=== PATIENT | male | born 1940 | race Caucasian/White ===

== ENCOUNTER 2020-01-21 08:08 | Emergency (ER) | payer MEDICARE, SELFPAY ==
[2020-01-21 08:28] VITALS: BP 149/79; PULSE 85; RESP 16; TEMP 36.5; O2SAT 99
--- NOTE | 2020-01-21 08:48 | ED.SKABFB ---
HPI - Skin/Abscess/Foreign Bdy General Chief complaint: Skin/Abscess/Foreign Body Stated complaint: Rash stomach down Time Seen by Provider: 01/21/20 08:47 Source: patient and RN notes reviewed Mode of arrival: ambulatory Limitations: no limitations History of Present Illness HPI narrative: 79-year-old male presents with concern for rash to his bilateral legs, lower abdomen. Reports approximately 5-day history of the rash. Reports it is itchy, not painful. Denies any new soaps, lotions, household products. Denies anyone else in the home has a similar rash. Reports the rash started on his legs and has spread. Reports areas of crust on his legs near the rash. Denies fever, malaise. Denies difficulty swallowing, breathing, swollen lips, swollen tongue, nausea, vomiting, diarrhea. Reports he was outdoors helping his son cut down trees, however he reports he has never reacted to any poison oak, reggie, sumac etc. in his lifetime. MD complaint: rash Related Data Home Medications Medication Instructions Recorded Confirmed amlodipine 5 mg PO DAILY 01/21/20 01/21/20 aspirin 81 mg PO DAILY 01/21/20 01/21/20 furosemide 40 mg PO DAILY 01/21/20 01/21/20 losartan 100 mg PO DAILY 01/21/20 01/21/20 simvastatin 40 mg PO DAILY 01/21/20 01/21/20 Allergies Allergy/AdvReac Type Severity Reaction Status Date / Time No Known Allergies Allergy Verified 01/21/20 08:42 Review of Systems Review of Systems: Narrative: CONSTITUTIONAL: Denies malaise, chills, sweats, or fever. ENT: Denies rhinorrhea, congestion, sinus pain, otalgia or sore throat. CARDIOVASCULAR: Denies chest pain, palpitations, or edema. RESPIRATORY: Denies cough or dyspnea. GASTROINTESTINAL: Denies nausea, vomiting, diarrhea SKIN: Reports itchy rash on legs, lower abdomen MUSCULOSKELETAL: Denies myalgia. All systems reviewed & are unremarkable except as noted in HPI and below PMFSH Comments At time of signature, agree with nursing past medical, surgical, social and family history. There is no relevant family history pertinent to the presenting complaint Exam Narrative: Exam Narrative: GENERAL: Well-appearing, well-nourished, and in no acute distress. HEAD: Normocephalic EYES: PERRLA, conjunctivae clear ENT: Nares clear. Mucous membranes moist. NECK: Supple. CHEST: No respiratory distress. Clear to auscultation. No bony deformities, no asymmetry. Speaks in full sentences. HEART: Regular rate and rhythm. No murmur heard. EXTREMITIES: Grossly normal range of motion. No edema SKIN: Warm, dry. Papular, vesicular erythematous rash noted in clusters and linear patterns to the bilateral lower legs, abdomen, back consistent with plant related contact dermatitis, no drainage noted at this time NEURO: Alert and oriented x3. PSYCH: Normal mood and affect Course Course Emergency Course: Patient is aware of diagnosis, understands and agrees to treatment plan. Anticipatory guidance given. Patient agrees to follow-up as directed and is aware of reasons to seek care at the emergency department. Portions of this record may have been created with voice recognition software Vital Signs Vital signs: Vital Signs Temperature 97.7 F 01/21/20 08:28 Pulse Rate 85 01/21/20 08:28 Respiratory Rate 16 01/21/20 08:28 Blood Pressure 149/79 H 01/21/20 08:28 Pulse Oximetry 99 01/21/20 08:28 Temperature 97.7 F 01/21/20 08:28 Pulse Rate 85 01/21/20 08:28 Respiratory Rate 16 01/21/20 08:28 Blood Pressure 149/79 H 01/21/20 08:28 Pulse Oximetry 99 01/21/20 08:28 Reviewed. Patient has history of hypertension MDM - Skin/Abscess/Foreign Bdy MDM Narrative Medical decision making narrative: Does not appear at this time to be erythema multiforme, bullous, SJS, TEN; no evidence at this time to suggest RMSF, endocarditis or Lyme disease; patient looks well, nontoxic and is tolerating oral intake; no neurologic signs or symptoms; no headache, photophobia or neck pain; a
== END 2020-01-21 09:03 | disposition home or self-care (01) ==
PROVIDERS: Emergency Provider Nurse Practitioner
DX: L24.7 Irritant contact dermatitis due to plants, except food (principal); E78.00 Pure hypercholesterolemia, unspecified; I10 Essential (primary) hypertension; Z79.82 Long term (current) use of aspirin
CPT/HCPCS: 99213; G0463

== ENCOUNTER 2020-04-09 09:26 | Emergency (ER) | payer MEDICARE, SELFPAY ==
[2020-04-09 09:35] VITALS: BP 149/76; PULSE 78; RESP 20; TEMP 36.9; O2SAT 99
--- NOTE | 2020-04-09 09:43 | ECG_ITS ---
Measurements Intervals [place] Rate: 72 P: 23 IN: 240 QRS: -73 QRSD: 182 T: 73 QT: 451 QTc: 494 Interpretive Statements ATRIAL SENSE- ELECTRONIC VENTRICULAR PACEMAKER BASELINE ARTIFACT- I, AVR NO FURTHER INTERPRETATION IS POSSIBLE ATYPICAL ECG Electronically Signed On 04-09-2020 11:14:52 CDT by Justin Ribera D.O.
[2020-04-09 10:00] VITALS: BP 121/63; BP 129/67; BP 133/66; PULSE 72; PULSE 75
--- NOTE | 2020-04-09 10:02 | ED.GENADULT ---
HPI - General Adult General Chief complaint: Dizziness Stated complaint: Dizzy HBP Time Seen by Provider: 04/09/20 10:02 Source: patient and RN notes reviewed Mode of arrival: ambulatory Limitations: no limitations History of Present Illness HPI narrative: 79-year-old male presents with complaints of dizziness, lightheadedness, and elevate blood pressure (Juan Francisco only remebered the top number of 164, symptoms occurred on 04/08/20 at approximately 13:00) for 1 day. 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 Increased fluids and rested once he arrived home from work otherwise no other treatments. Exacerbating factors consist of overheating. Relieving factors rest. Denies ear pain, ear trauma, trauma to head, syncopal episodes, altered vision, altered speech, confusion, or seizure activity. Denies headache, numbness or tingling in extremities. Denies chest pain or dyspnea. Denies URI symptoms, fever, or chills. Tolerating p.o. intake well. Remains active. The patient reports he have not been diagnosed with COVID-19. The patient reports he is not waiting for the results of a COVID-19 lab test. The patient reports he do not have fever, chills, weakness, or fatigue. The patient reports he do not have a new or worsening cough or shortness of breath. Denies chest pain. The patient reports he do not have any rhinorrhea, congestion, sore throat, loss of taste, nausea, vomiting, abdominal pain, and diarrhea. Tolerating po intake well. Denies recent traveling. Denies concerns for COVID-19 or exposures been home with limited outdoor exposure except for essential household needs, work, and return home. At this time, patient is not suspected of having COVID-19. Some parts of this dictation were generated by voice recognition software and may contain typographical and/or grammatical inaccuracies. Related Data Home Medications Medication Instructions Recorded Confirmed amlodipine 5 mg PO DAILY 01/21/20 04/09/20 furosemide 40 mg PO DAILY 01/21/20 04/09/20 losartan 100 mg PO DAILY 01/21/20 04/09/20 simvastatin 40 mg PO DAILY 01/21/20 04/09/20 Allergies Allergy/AdvReac Type Severity Reaction Status Date / Time No Known Allergies Allergy Verified 04/09/20 09:57 Review of Systems Review of Systems: Narrative: CONSTITUTIONAL: Denies fever, chills, sweats. EYES: Denies visual changes, redness, discharge. ENT: Denies rhinorrhea, congestion, sore throat, otalgia. CARDIOVASCULAR: Denies chest pain, palpitations, edema. RESPIRATORY: Denies dyspnea, wheezing, cough. GASTROINTESTINAL: Denies abdominal pain, nausea, vomiting, diarrhea. GENITOURINARY: Denies dysuria, hematuria, abnormal discharge. SKIN: Denies lesions, itching, drainage. MUSCULOSKELETAL: Denies acute back pain, joint pain, or myalgia. NEUROLOGIC: Denies numbness or focal weakness. Complains of dizziness-Resolved. PSYCHIATRIC: Denies anxiety or depression. All systems reviewed & are unremarkable except as noted in HPI and below. [facility] Past Medical History Medical History (Updated 04/09/20 @ 11:54 by ROBERT Whelan) Hypercholesteremia Hypertension Myocardial infarct, old [facility] [place] [id number] MAR[place] [id number] Surgical History Surgical History (Updated 04/09/20 @ 11:54 by ROBERT Whelan) History of cholecystectomy Family History Family History (Updated 04/09/20 @ 11:56 by ROBERT Whelan) Father , complication of pneumonia Pneumonia Mother Acute myocardial infarction Diabetes mellitus Social History Social History (Updated 04/09/20 @ 11:57 by ROBERT Whelan) Years smoked: 60 Smoking status: Current every day smoker Tobacco type: cigars Second hand tobacco smoke exposure: No (smokes 4 cigars daily for 60 years) Alcohol intake: former Substance use: never Living arrangements: with family Additional living arrange
[2020-04-09 10:12] LABS: Glucose Point of Care 130 (65-105)
== END 2020-04-09 10:25 | disposition home or self-care (01) ==
PROVIDERS: Emergency Provider Nurse Practitioner Family
DX: R42 Dizziness and giddiness (principal); F17.290 Nicotine dependence, other tobacco product, uncomplicated; E78.00 Pure hypercholesterolemia, unspecified; I10 Essential (primary) hypertension; I25.2 Old myocardial infarction; Z95.0 Presence of cardiac pacemaker
CPT/HCPCS: 82948; 93005; 99213; G0463

== ENCOUNTER 2020-05-28 11:25 | Emergency (ER) | payer MEDICARE, SELFPAY ==
--- NOTE | 2020-05-28 11:31 | ED.EXTPRO ---
HPI - Extremity Problem General Chief complaint: Extremity Injury, Lower Stated complaint: toe pain Time Seen by Provider: 05/28/20 11:36 Source: patient and RN notes reviewed Mode of arrival: ambulatory Limitations: no limitations History of Present Illness HPI Narrative: 79-year-old male presents with concern for swollen, red, tender first toe on his left foot for 3 days. Reports history of gout. Reports he ate several hotdogs prior to this occurrence. He denies any fever, foot pain, injury to the foot or toe. Denies open skin. MD Complaint: extremity pain Related Data Home Medications Medication Instructions Recorded Confirmed amlodipine 5 mg PO DAILY 01/21/20 05/05/20 furosemide 40 mg PO DAILY 01/21/20 05/05/20 losartan 100 mg PO DAILY 01/21/20 05/05/20 simvastatin 40 mg PO DAILY 01/21/20 05/05/20 aspirin 81 mg tablet,delayed 81 mg PO DAILY 05/05/20 05/05/20 release Allergies Allergy/AdvReac Type Severity Reaction Status Date / Time No Known Allergies Allergy Verified 05/05/20 13:00 Review of Systems Review of Systems: Narrative: CONSTITUTIONAL: Denies malaise, chills, sweats, or fever. CARDIOVASCULAR: Denies chest pain, palpitations RESPIRATORY: Denies cough or dyspnea. SKIN: Reports tenderness, redness, warmth to the first digit of the left foot MUSCULOSKELETAL: Denies musculoskeletal pain NEUROLOGIC: Denies numbness, weakness All systems reviewed & are unremarkable except as noted in HPI and below PMFSH Past Medical History Medical History (Updated 05/28/20 @ 11:45 by Dinah Burnett NP) Hypercholesteremia Hypertension Myocardial infarct, old 2019 Pacemaker [employer] [place] [address] MARIE [id number] Surgical History Surgical History History of cholecystectomy Family History Family History Father , complication of pneumonia Pneumonia Mother Acute myocardial infarction Diabetes mellitus Social History Social History Years smoked: 60 Smoking status: Current every day smoker Tobacco type: cigars Second hand tobacco smoke exposure: No (smokes 4 cigars daily for 60 years) Alcohol intake: former Substance use: never Additional living arrangements comments: grandson Gender identity (if verbalized by the patient): Male Comments At time of signature, agree with nursing past medical, surgical, social and family history. There is no relevant family history pertinent to the presenting complaint Exam Narrative: Exam Narrative: GENERAL: Well-appearing, well-nourished, and in no acute distress. HEAD: Normocephalic EYES: PERRLA, conjunctivae clear ENT: Mucous membranes moist. NECK: Supple. CHEST: No respiratory distress. Speaks in full sentences. HEART: Regular rate and rhythm. EXTREMITIES: Left foot and digits have normal range of motion, no edema, normal strength and sensation. SKIN: Warm, dry, no rash. Erythema, warmth, redness noted to the first digit of the left foot NEURO: Alert and oriented x3. PSYCH: Normal mood and affect Course Course Emergency Course: Patient is aware of diagnosis, understands and agrees to treatment plan. Anticipatory guidance given. Patient agrees to follow-up as directed and is aware of reasons to seek care at the emergency department. Portions of this record may have been created with voice recognition software Vital Signs Vital signs: Vital Signs Temperature 98.1 F 05/28/20 11:35 Pulse Rate 73 05/28/20 11:35 Respiratory Rate 20 05/28/20 11:35 Blood Pressure 145/73 H 05/28/20 11:35 Pulse Oximetry 96 05/28/20 11:35 Temperature 98.1 F 05/28/20 11:35 Pulse Rate 73 05/28/20 11:35 Respiratory Rate 20 05/28/20 11:35 Blood Pressure 145/73 H 05/28/20 11:35 Pulse Oximetry 96 05/28/20 11:35 Reviewed. MDM - Extremity (Nontraumat
[2020-05-28 11:35] VITALS: BP 145/73; PULSE 73; RESP 20; TEMP 36.7; O2SAT 96
== END 2020-05-28 11:53 | disposition home or self-care (01) ==
PROVIDERS: Emergency Provider Nurse Practitioner; PCP Family Medicine
DX: M10.9 Gout, unspecified (principal); E78.00 Pure hypercholesterolemia, unspecified; I10 Essential (primary) hypertension; I25.2 Old myocardial infarction; Z95.0 Presence of cardiac pacemaker
CPT/HCPCS: 99213; G0463

== ENCOUNTER 2020-07-07 12:40 | Outpatient (CLI) | payer MEDICARE, SELFPAY ==
--- NOTE | ~2020-07-07 | XR_ITS ---
EXAMINATION: XR chest 2V DATE: 07/07/2020 13:01 INDICATION: Cough. TECHNIQUE: Frontal and lateral views of the chest were obtained. COMPARISON: None. FINDINGS: There is mild atelectasis at the lung bases. No pleural effusion or pneumothorax. The heart size is normal. There is a left chest wall pacer with leads in the right atrium and right ventricle. Surgical clips in the right upper quadrant are likely from cholecystectomy. IMPRESSION: 1. Mild atelectasis at the lung bases. Reviewed, dictated and finalized at location B. FITS CLERK
== END 2020-07-07 12:41 | disposition home or self-care (01) ==
LOC: ANHBWCIMG 12:44
PROVIDERS: PCP Family Medicine; Visit Provider Family Medicine
DX: R05 Cough (principal); J98.11 Atelectasis
CPT/HCPCS: 71046

== ENCOUNTER 2021-03-09 08:30 | Outpatient (CLI) | payer MEDICARE, SELFPAY ==
[2021-03-09 19:25] LABS: Basophils Absolute Auto 0.1 K/mm3 (0.0-0.1); Basophils Percent Auto 1.8 % (0.2-1.2); Eosinophils Absolute Auto 0.2 K/mm3 (0-0.3); Eosinophils Percent Auto 3.4 % (0-4.4); Hematocrit 46.7 % (42.0-52.0); Hemoglobin 15.2 g/dL (14.0-18.0); Immature Granulocyte Absolute 0.01 K/mm3 (0.00-0.031); Immature Granulocyte Percent A 0.2 % (0-0.5); Lymphocytes Absolute Auto 1.52 K/mm3 (0.9-3.2); Lymphocytes Percent Auto 30.3 % (18.3-44.2); Mean Corpuscular HGB Conc 32.5 g/dl (32-36); Mean Corpuscular Hemoglobin 30.1 pg (26-34); Mean Corpuscular Volume 92.5 fl (80-100); Mean Platelet Volume 10.2 fl (7.4-10.4); Monocytes Absolute Auto 0.5 K/mm3 (0.1-0.6); Monocytes Percent Auto 10.6 % (2.6-8.5); Neutrophils Absolute Auto 2.7 K/mm3 (1.3-6.7); Neutrophils Percent Auto 53.7 % (45.5-73.1); Platelet Count Result 237 k/mm3 (150-375); Red Blood Count 5.05 M/mm3 (4.6-6.20); Red Cell Distribution Width 12.7 % (11.5-14.5)
[2021-03-09 19:35] LABS: Alanine Aminotransferase 11 U/L (4-50); Albumin Level 4.1 g/dL (3.5-5.1); Alkaline Phosphatase 88 U/L (38-126); Anion Gap 10 mmol/L (8-16); Aspartate Amino Transferase 18 U/L (17-59); Bilirubin,Total 0.5 mg/dL (0.2-1.3); Blood Urea Nitrogen 18 mg/dL (9-20); Calcium 9.1 mg/dL (8.4-10.2); Carbon Dioxide 27 mmol/L (22-30); Chloride 103 mmol/L (98-107); Cholesterol 154 mg/dL (0-200); Estimated Glomerular Filt Rate > 60; Glucose 108 mg/dL (65-110); HDL Direct 42 mg/dL; Potassium 3.8 mmol/L (3.4-5.0); Sodium 140 mmol/L (137-145); Triglycerides 116 mg/dL (<150)
[2021-03-09 19:38] LABS: Hemoglobin A1C 5.8 % (<5.7)
[2021-03-09 19:46] LABS: LDL Cholesterol Direct 86 mg/dL
[2021-03-09 19:53] LABS: Vitamin D 25 Hydroxy 33.9 ng/mL
[2021-03-09 21:12] LABS: Folic Acid 4.6 ng/mL (2.76->20)
[2021-03-12 06:33] LABS: Prolactin 6.7 ng/mL (***)
[2021-03-12 18:00] LABS: PSA, Free <0.01 ng/mL; PSA, Total <0.1 ng/mL (<=4.0)
== END 2021-03-09 08:31 | disposition home or self-care (01) ==
PROVIDERS: PCP Family Medicine; Visit Provider Family Medicine
DX: E34.9 Endocrine disorder, unspecified (principal); E53.8 Deficiency of other specified B group vitamins; R79.89 Other specified abnormal findings of blood chemistry; E78.00 Pure hypercholesterolemia, unspecified; E66.9 Obesity, unspecified; I10 Essential (primary) hypertension; Z79.899 Other long term (current) drug therapy; Z85.46 Personal history of malignant neoplasm of prostate; I25.2 Old myocardial infarction; N52.9 Male erectile dysfunction, unspecified; R73.03 Prediabetes; E22.1 Hyperprolactinemia
CPT/HCPCS: 36415; 80053; 80061; 82306; 82607; 82746; 83036; 84146; 84153; 84154; 84443; 85025

== ENCOUNTER 2021-06-05 09:52 | Emergency (ER) | payer MEDICARE, SELFPAY ==
[2021-06-05 10:07] VITALS: BP 159/79; PULSE 76; RESP 16; TEMP 36.4; O2SAT 98
--- NOTE | 2021-06-05 10:49 | ED.URI ---
HPI - URI/Sore Throat General Chief Complaint: Upper Respiratory Infection Stated Complaint: Cough Time Seen by Provider: 06/05/21 10:49 History of Present Illness HPI Narrative: PATIENT PRESENTS WITH CONTINUED COUGH AND NASAL CONGESTION NO SHORTNESS OF BREATH AND NO CHEST PAIN. PATIENT WAS JUST AT THE ER AND TESTED FOR COVID AND IT WAS NEGATIVE. PATIENT REPORTS NEGATIVE CXR. PRESENTS WITH CONTINUED COUGH AND NASAL CONGESTION. MD elicited complaint: cough Related Data Home Medications Medication Instructions Recorded Confirmed aspirin 81 mg tablet,delayed 81 mg PO DAILY 05/05/20 06/05/21 release Allergies Allergy/AdvReac Type Severity Reaction Status Date / Time No Known Allergies Allergy Verified 03/09/21 07:48 Review of Systems Review of Systems: CONSTITUTIONAL: Denies chills, or sweats. Reports fever and generalized body aches EYES: Denies visual changes, redness, or discharge. ENT: Denies otalgia. Reports nasal congestion runny nose and sore throat CARDIOVASCULAR: Denies chest pain, palpitations, or edema. RESPIRATORY: Denies dyspnea. Reports occasional cough GASTROINTESTINAL: Denies abdominal pain, nausea, vomiting, or diarrhea. GENITOURINARY: Denies dysuria or hematuria. SKIN: Denies rash or itching. MUSCULOSKELETAL: Denies back pain, joint pain, or myalgia. Reports generalized body aches NEUROLOGIC: Denies headache, numbness, or weakness. PSYCHIATRIC: Denies anxiety or depression. [facility] Past Medical History Medical History (Updated 06/05/21 @ 11:06 by ROBERT Phillips) Hypercholesteremia Hypertension Low vitamin B12 level Myocardial infarct, old 2019 Pacemaker [employer] [place] [address] MARIE [id number] Surgical History Surgical History History of cholecystectomy Family History Family History Father , complication of pneumonia Pneumonia Mother Acute myocardial infarction Diabetes mellitus Social History Social History Years smoked: 60 Smoking status: Current every day smoker Tobacco type: cigars Second hand tobacco smoke exposure: No (smokes 4 cigars daily for 60 years) Alcohol intake: former Substance use: never Additional living arrangements comments: grandson Gender identity (if verbalized by the patient): Male Sexual Orientation (if Verbalized by the Patient): Straight or Heterosexual Comments At time of signature, agree with nursing past medical, surgical, social and family history. There is no relevant family history pertinent to the presenting complaint Exam Narrative: The patient is a well-developed, well-nourished in no acute distress. SKIN: Skin is warm and dry without erythema, swelling or exudate. There is good turgor. No tenting. HEAD: Atraumatic. Normocephalic. No temporal or scalp tenderness. EYES: Moist and bright. Sclera and conjunctivae normal. No discharge. PERRLA. Extraocular motions intact. Gross visual acuity intact. EARS: Pinna is normal shape and contour. Clear external auditory canals. TM pearly santiago with good cone of light, no erythema or suppuration. Bilateral cerumen noted no gross hearing deficit. NOSE: pink, moist mucosa with good air movement. Clear rhinorrhea without nasal flaring. Septum midline. Mouth: moist mucous membranes. THROAT; mild erythema noted to posterior oropharynx with moderate postnasal drainage. Without exudate or ulceration.. Uvula midline. Normal movement of soft palate. NECK: Supple and nontender with full range of motion without discomfort. No meningeal signs. LUNGS: Equal and bilateral breath sounds without wheezes, rales or rhonchi. CHEST: The chest wall is without retractions or use of accessory muscles. HEART: Has a regular rate and rhythm without murmur, gallops, click or rub. ABDOMEN: Soft, nontender with positive active b
== END 2021-06-05 11:10 | disposition home or self-care (01) ==
PROVIDERS: Emergency Provider Nurse Practitioner Family
DX: J40 Bronchitis, not specified as acute or chronic (principal); J32.9 Chronic sinusitis, unspecified; F17.290 Nicotine dependence, other tobacco product, uncomplicated; E78.00 Pure hypercholesterolemia, unspecified; I10 Essential (primary) hypertension; I25.2 Old myocardial infarction; Z95.0 Presence of cardiac pacemaker; Z79.82 Long term (current) use of aspirin
CPT/HCPCS: 99213; G0463

== ENCOUNTER 2021-11-07 09:35 | Emergency (ER) | payer MEDICARE, SELFPAY ==
[2021-11-07 09:42] VITALS: BP 157/88; PULSE 72; RESP 20; TEMP 36.8; O2SAT 100
--- NOTE | 2021-11-07 09:48 | ED.LOWEXIN ---
HPI - Extremity Injury (Lower) General Chief Complaint: Wound/Laceration Stated Complaint: Left Foot/ Toe Time Seen by Provider: 11/07/21 09:57 Source: patient, RN notes reviewed and old records reviewed Mode of arrival: ambulatory Limitations: no limitations History of Present Illness HPI Narrative: 81 year old male [facility] with complaints of having hard toenail to his left 2nd toe which patient states that he is able to bend upward with nail noted to be loose from nail bed. Patient has noted toe nail hardening and yellowing of toenails of his left foot. Patient states that he has removed several of his toenails himself in the past when they have become hardened and loose at the nail bed but grandson told him he should get this one checked out. Patient denies any acute pain at left 2nd toe or any injury. Patient reports that he has had COVID vaccinations. MD complaint: other (toe) Related Data Home Medications Medication Instructions Recorded Confirmed aspirin 81 mg tablet,delayed 81 mg PO DAILY 05/05/20 11/07/21 release Allergies Allergy/AdvReac Type Severity Reaction Status Date / Time No Known Allergies Allergy Verified 11/07/21 09:51 Review of Systems Review of Systems: CONSTITUTIONAL: Denies fever, chills, or sweats. EYES: Denies visual changes, redness, or discharge. ENT: Denies rhinorrhea, congestion, sore throat, or otalgia. CARDIOVASCULAR: Denies chest pain, palpitations, or edema. RESPIRATORY: Denies cough or dyspnea. GASTROINTESTINAL: Denies abdominal pain, nausea, vomiting, or diarrhea. GENITOURINARY: Denies dysuria or hematuria. SKIN: Denies rash or itching.loose hardened toe nail on the 2nd toe of left foot MUSCULOSKELETAL: Denies back pain, joint pain, or myalgia. NEUROLOGIC: Denies headache, numbness, or weakness. PSYCHIATRIC: Denies anxiety or depression. All systems reviewed & are unremarkable except as noted in HPI and below [facility] Past Medical History Medical History (Updated 11/08/21 @ 00:00 by Background Dagary) Hypercholesteremia Hypertension Low vitamin B12 level Myocardial infarct, old 2019 Pacemaker [employer] [place] [address] MARIE [id number] Surgical History Surgical History (Reviewed 03/09/21 @ 07:51 by Kavya Mathias, [facility]) History of cholecystectomy Family History Family History (Reviewed 03/09/21 @ 07:51 by Kavya Mathias [facility]) Father , complication of pneumonia Pneumonia Mother Acute myocardial infarction Diabetes mellitus Social History Social History (Reviewed 03/09/21 @ 07:51 by Kavya Mathias [facility]) Years smoked: 60 Smoking status: Current every day smoker Tobacco type: cigars Second hand tobacco smoke exposure: No (smokes 4 cigars daily for 60 years) Alcohol intake: former Substance use: never Additional living arrangements comments: grandson Gender identity (if verbalized by the patient): Male Sexual Orientation (if Verbalized by the Patient): Straight or Heterosexual Comments At time of signature, agree with nursing past medical, surgical, social and family history. There is no relevant family history pertinent to the presenting complaint Exam Narrative: GENERAL: Well-appearing, well-nourished, and in no acute distress. HEAD: Normocephalic, atraumatic. EYES: PERRLA and EOMI. ENT: Nares clear, no rhinorrhea or epistaxis. Mucous membranes moist.TM's normal with good light reflex, throat pink with no lesions or exudates or tonsil enlargement. NECK: Supple. no lymphadenopathy CHEST: Clear to auscultation. No respiratory distress.no cough or congestion SAO2 100% on room air HEART: Regular rate and rhythm. No murmur heard. Normal peripheral pulses. ABDOMEN: Soft, nontender, nondistended, normal active bowel sounds. EXTREMITIES: Normal range of motion. No edema. SKIN: Warm, dry, no rash.Hardened yellow toe nail of 2nd toe left foot with toe nail loose at base no bleeding noted or any purulent drainage note
== END 2021-11-07 10:33 | disposition home or self-care (01) ==
PROVIDERS: Emergency Provider Registered Nurse; PCP Family Medicine
DX: B35.1 Tinea unguium (principal); E78.00 Pure hypercholesterolemia, unspecified; I10 Essential (primary) hypertension; I25.2 Old myocardial infarction; Z95.0 Presence of cardiac pacemaker; F17.290 Nicotine dependence, other tobacco product, uncomplicated
CPT/HCPCS: 99213; G0463

== ENCOUNTER 2021-11-29 14:49 | Emergency (ER) | payer MEDICARE, SELFPAY ==
[2021-11-29 14:56] VITALS: BP 154/72; PULSE 82; RESP 20; TEMP 36.8; O2SAT 98
--- NOTE | 2021-11-29 16:01 | ED.GENADULT ---
HPI - General Adult General Chief complaint: Extremity Problem,Nontraumatic Stated complaint: Right/Left Foot Pain Time Seen by Provider: 11/29/21 15:48 Source: patient, RN notes reviewed and old records reviewed Mode of arrival: ambulatory Limitations: no limitations History of Present Illness HPI narrative: Patient presents today complaining of a 4-day history of swelling to his bilateral feet and ankles as well as some occasional pains in his feet while walking. Denies injury, trauma. Denies any cough or shortness of breath. Believes that he may have a gout flare. History of diastolic CHF with pacemaker. Patient does take 40 of Lasix daily, but has not taken his dose yet today because he works during the day. MD complaint: feet swelling Related Data Home Medications Medication Instructions Recorded Confirmed aspirin 81 mg tablet,delayed 81 mg PO DAILY 05/05/20 11/29/21 release Allergies Allergy/AdvReac Type Severity Reaction Status Date / Time No Known Allergies Allergy Verified 11/29/21 15:15 Review of Systems Review of Systems: CONSTITUTIONAL: Denies body aches, fever, chills, or sweats. EYES: Denies visual changes, redness, or discharge. ENT: Denies rhinorrhea, congestion, sore throat, or otalgia. CARDIOVASCULAR: Denies chest pain, palpitations, or edema. RESPIRATORY: Denies cough or dyspnea. GASTROINTESTINAL: Denies abdominal pain, nausea, vomiting, or diarrhea. GENITOURINARY: Denies dysuria or hematuria. SKIN: Denies rash, itching, or wounds. MUSCULOSKELETAL: Denies back pain, joint pain, or myalgia. +bilateral foot and ankle swelling NEUROLOGIC: Denies headache, numbness, tingling, or weakness. PSYCH: Denies depression or anxiety. [facility] Past Medical History Medical History Hypercholesteremia Hypertension Low vitamin B12 level Myocardial infarct, old 2019 Pacemaker [employer] [place] [address] [place] [id number] Surgical History Surgical History History of cholecystectomy Family History Family History Father , complication of pneumonia Pneumonia Mother Acute myocardial infarction Diabetes mellitus Social History Social History Years smoked: 60 Smoking status: Current every day smoker Tobacco type: cigars Second hand tobacco smoke exposure: No (smokes 4 cigars daily for 60 years) Alcohol intake: former Substance use: never Additional living arrangements comments: grandson Gender identity (if verbalized by the patient): Male Sexual Orientation (if Verbalized by the Patient): Straight or Heterosexual Comments At time of signature, I have reviewed and agree with nursing past medical, surgical, social and family history unless otherwise noted. Please see nursing chart for further information. There is no relevant family history pertinent to the presenting complaint Exam Narrative: GENERAL: Well-appearing, well-nourished, and in no acute distress. HEAD: Normocephalic, atraumatic. EYES: EOMI. No redness or drainage. Conjunctivae normal. ENT: Mucous membranes pink and moist. NECK: Normal AROM. CHEST: No respiratory distress. Clear to auscultation. HEART: Regular rate and rhythm. No murmur appreciated. Normal peripheral pulses. EXTREMITIES: Normal range of motion. 2+ pitting edema of the feet and ankles that extends midway up the lower leg to 1+ edema to the mid calf. No erythema or ecchymosis. Patient has strong pedal pulses bilaterally. Distal sensation intact. Capillary refill normal. Full range of motion of ankles and all toes. SKIN: Warm, dry, no rash. Capillary refill normal. Normal skin turgor. NEURO: No focal deficits. Alert and oriented x3. Gait steady. PSYCH: Normal affect. No signs of depression or a
== END 2021-11-29 16:21 | disposition home or self-care (01) ==
PROVIDERS: Emergency Provider Nurse Practitioner; PCP Family Medicine
DX: R60.0 Localized edema (principal); I10 Essential (primary) hypertension; I25.2 Old myocardial infarction; F17.210 Nicotine dependence, cigarettes, uncomplicated; Z79.82 Long term (current) use of aspirin; Z95.0 Presence of cardiac pacemaker
CPT/HCPCS: 99212; G0463

== ENCOUNTER 2021-12-01 08:01 | Outpatient (CLI) | payer MEDICARE, SELFPAY ==
[2021-12-01 19:41] LABS: Basophils Absolute Auto 0.1 K/mm3 (0.0-0.1); Basophils Percent Auto 1.7 % (0.2-1.2); Eosinophils Absolute Auto 0.2 K/mm3 (0-0.3); Eosinophils Percent Auto 3.4 % (0-4.4); Hemoglobin 14.3 g/dL (14.0-18.0); Immature Granulocyte Absolute 0.01 K/mm3 (0.00-0.031); Immature Granulocyte Percent A 0.2 % (0-0.5); Lymphocytes Absolute Auto 1.43 K/mm3 (0.9-3.2); Lymphocytes Percent Auto 30.3 % (18.3-44.2); Mean Corpuscular HGB Conc 33.3 g/dl (32-36); Mean Corpuscular Hemoglobin 31.1 pg (26-34); Mean Corpuscular Volume 93.5 fl (80-100); Mean Platelet Volume 10.2 fl (7.4-10.4); Monocytes Absolute Auto 0.5 K/mm3 (0.1-0.6); Monocytes Percent Auto 10.2 % (2.6-8.5); Neutrophils Absolute Auto 2.6 K/mm3 (1.3-6.7); Neutrophils Percent Auto 54.2 % (45.5-73.1); Platelet Count Result 260 k/mm3 (150-375); Red Cell Distribution Width 12.6 % (11.5-14.5); White Blood Count 4.7 K/mm3 (4.5-10.0)
[2021-12-01 19:54] LABS: Alanine Aminotransferase 12 U/L (4-50); Albumin Level 3.8 g/dL (3.5-5.1); Alkaline Phosphatase 80 U/L (38-126); Anion Gap 8 mmol/L (8-16); Aspartate Amino Transferase 19 U/L (17-59); Bilirubin,Total 0.6 mg/dL (0.2-1.3); Blood Urea Nitrogen 13 mg/dL (9-20); Calcium 8.4 mg/dL (8.4-10.2); Carbon Dioxide 30 mmol/L (22-30); Chloride 102 mmol/L (98-107); Estimated Glomerular Filt Rate > 60; Glucose 129 mg/dL (65-110); Potassium 3.6 mmol/L (3.4-5.0); Sodium 140 mmol/L (137-145)
[2021-12-01 20:02] LABS: NT Pro B Type Natriuretic Pept 485 pg/mL (5-100)
[2021-12-01 21:17] LABS: Hemoglobin A1C 5.6 % (<5.7)
== END 2021-12-01 08:02 | disposition home or self-care (01) ==
PROVIDERS: PCP Family Medicine; Visit Provider Family Medicine
DX: I11.9 Hypertensive heart disease without heart failure (principal); I50.30 Unspecified diastolic (congestive) heart failure; Z95.0 Presence of cardiac pacemaker; R73.03 Prediabetes; M10.9 Gout, unspecified
CPT/HCPCS: 36415; 80053; 83036; 83880; 84550; 85025

== ENCOUNTER 2021-12-12 08:32 | Emergency (ER) | payer MEDICARE, SELFPAY ==
--- NOTE | 2021-12-12 08:32 | ED.URI ---
HPI - URI/Sore Throat General Chief Complaint: Upper Respiratory Infection Stated Complaint: Cough Time Seen by Provider: 12/12/21 08:33 Source: patient and RN notes reviewed History of Present Illness HPI Narrative: Patient is a 81-year-old male who presents the urgent care with complaints of fatigue, cough and body aches. Patient has not taken anything [id number] for his symptoms. Denies of any known fever. Denies of any nausea or vomiting. Denies any chest pain or shortness of breath. Patient states his symptoms started last night. Denies of any ill contacts. Patient denies of any history of pneumonia. No other acute complaints. No acute distress noted. Patient aware of the plan of care. Some parts of this dictation were generated by voice recognition software and may contain typographical and/or grammatical inaccuracies. Related Data Home Medications Medication Instructions Recorded Confirmed aspirin 81 mg tablet,delayed 81 mg PO DAILY 05/05/20 12/01/21 release Allergies Allergy/AdvReac Type Severity Reaction Status Date / Time No Known Allergies Allergy Verified 12/12/21 08:51 Review of Systems Review of Systems: CONSTITUTIONAL: Denies fever, chills, or sweats. Reports of fatigue EYES: Denies visual changes, redness, or discharge. ENT: Denies rhinorrhea, congestion, sore throat, or otalgia. CARDIOVASCULAR: Denies chest pain, palpitations, or edema. RESPIRATORY: Reports a mild nonproductive cough without dyspnea GASTROINTESTINAL: Denies abdominal pain, nausea, vomiting, or diarrhea. GENITOURINARY: Denies dysuria or hematuria. SKIN: Denies rash or itching. MUSCULOSKELETAL: Denies back pain, joint pain. Reports of body aches NEUROLOGIC: Denies headache, numbness, or weakness. All other systems reviewed are negative, except as documented in HPI. [facility] Past Medical History Medical History Hypercholesteremia Hypertension Low vitamin B12 level Myocardial infarct, old 2019 Pacemaker [employer] [place] 8 MARIE [id number] Surgical History Surgical History History of cholecystectomy Family History Family History Father , complication of pneumonia Pneumonia Mother Acute myocardial infarction Diabetes mellitus Social History Social History Years smoked: 60 Smoking status: Current every day smoker Tobacco type: cigars Second hand tobacco smoke exposure: No (smokes 4 cigars daily for 60 years) Alcohol intake: former Substance use: never Additional living arrangements comments: grandson Gender identity (if verbalized by the patient): Male Sexual Orientation (if Verbalized by the Patient): Straight or Heterosexual Comments At the time of my signature, I reviewed and agree with the nursing past medical, surgical, social, and family history. There is no relevant family history pertinent to the patient complaint. Exam Narrative: GENERAL: This is a well-nourished, well-developed patient, in no apparent distress. HEAD: normocephalic, atraumatic. EYES: PERRL. Sclera clear/white. Vision is grossly intact. EARS: External ears normal, auditory canals clear and without drainage, cerumen noted bilaterally. TMs normal without perforation. Hearing grossly intact. NOSE: External nose normal with no obvious nasal discharge, nares without redness, no rhinorrhea. THROAT: Mucous membranes moist, posterior pharynx clear. NECK: Neck supple CARDIOVASCULAR: Regular rate and rhythm without murmurs, gallops, or rubs. RESPIRATORY: Clear to auscultation. Diminished bibasilar. No wheezes, rales, or rhonchi. SKIN: warm, intact with no suspicious lesions or rash, good texture and turgor. NEURO: awake, alert, and oriented to person, place an
[2021-12-12 08:38] VITALS: BP 154/90; PULSE 87; RESP 14; TEMP 37; O2SAT 98
== END 2021-12-12 09:10 | disposition home or self-care (01) ==
PROVIDERS: Emergency Provider Nurse Practitioner Family; PCP Family Medicine
DX: J00 Acute nasopharyngitis [common cold] (principal); F17.290 Nicotine dependence, other tobacco product, uncomplicated; E78.00 Pure hypercholesterolemia, unspecified; I10 Essential (primary) hypertension; I25.2 Old myocardial infarction; Z95.0 Presence of cardiac pacemaker; Z79.82 Long term (current) use of aspirin
CPT/HCPCS: 87804; 99213; G0463

== ENCOUNTER 2021-12-17 10:37 | Emergency (ER) | payer MEDICARE, SELFPAY ==
--- NOTE | ~2021-12-17 | XR_ITS ---
EXAMINATION: XR chest 2V DATE: 12/17/2021 11:03 INDICATION: Productive cough TECHNIQUE: frontal and lateral views of the chest were obtained. COMPARISON: Chest radiograph dated 07/07/2020 FINDINGS: Mild streaky bibasilar opacities and favor atelectasis over pneumonia. No pleural effusion or pneumot horax. The cardiomediastinal silhouette is normal. Dual lead pacemaker seen with leads projecting ove r the expected locations of the right atrium and right ventricle. Cholecystectomy clips in the right upper quadrant. Moderate thoracic spondylosis. IMPRESSION: 1. Mild streaky bibasilar atelectasis versus less likely pneumonia. Reviewed, dictated and finalized at location A.
[2021-12-17 10:42] VITALS: BP 151/82; PULSE 82; RESP 20; TEMP 36.8; O2SAT 98
--- NOTE | 2021-12-17 10:44 | ED.GENADULT ---
HPI - General Adult General Chief complaint: Medical Clearance Stated complaint: Needs Evaluated for work slip Time Seen by Provider: 12/17/21 10:38 Source: patient Mode of arrival: ambulatory Limitations: no limitations History of Present Illness HPI narrative: Mr. Montgomery is a 81-year-old male patient presenting to the clinic today for clearance to go back to work. He reports about 8 days ago he was tested for influenza and was positive for influenza A. He reports at that time he had a productive cough with yellow phlegm and mild shortness of breath. He reports that he still having a productive cough but the phlegm has cleared up. He currently denies any shortness of breath, chest pain, or fever at this time. States that he feels a lot better and he is ready to go back to work. Related Data Home Medications Medication Instructions Recorded Confirmed aspirin 81 mg tablet,delayed 81 mg PO DAILY 05/05/20 12/01/21 release Allergies Allergy/AdvReac Type Severity Reaction Status Date / Time No Known Allergies Allergy Verified 12/12/21 08:51 Review of Systems Review of Systems: Pertinent positives per HPI. Patient denies any fever, chills, rash, headache, visual changes, dizziness, runny nose, sore throat, shortness of breath, chest pain, palpitations, nausea, vomiting, diarrhea, constipation, abdominal pain, or any urinary issues. [facility] Past Medical History Medical History Hypercholesteremia Hypertension Low vitamin B12 level Myocardial infarct, old 2019 Pacemaker [employer] [place] 8 MARIE [id number] Surgical History Surgical History History of cholecystectomy Family History Family History Father , complication of pneumonia Pneumonia Mother Acute myocardial infarction Diabetes mellitus Social History Social History Years smoked: 60 Smoking status: Current every day smoker Tobacco type: cigars Second hand tobacco smoke exposure: No (smokes 4 cigars daily for 60 years) Alcohol intake: former Substance use: never Additional living arrangements comments: grandson Gender identity (if verbalized by the patient): Male Sexual Orientation (if Verbalized by the Patient): Straight or Heterosexual Comments At the time of my signature, I reviewed and agree with the nursing past medical, surgical, social, and family history. There is no relevant family history pertinent to the patient complaint. Exam Narrative: General: Well-developed, obese, in no apparent distress Head: Normocephalic, atraumatic Eyes: Pupils equally round and reactive to light bilaterally, EOM intact, sclera and conjunctive clear, no discharge, lids normal Ears: TMs intact and clear, ear canals ceruminous, no drainage, grossly hearing normal. Nose: Nares patent, clear nasal discharge, no inflammation, no sinus tenderness. Mouth: Oropharynx without lesions or masses, good dentition, MMM. Neck: Supple, trachea midline, no enlargement of anterior or posterior cervical nodes, no thyroid masses or goiter palpable. Cardio: Regular rate and rhythm, s1 and s2 normal, no murmur appreciated. Resp: Crackles to auscultation posteriorly over the left mid/ lower lobe, no rhonchi, rales, wheezing or rubs Course Course Emergency Course: Portions of this record may have been created with voice recognition software. Level of Care: Express Care Visit Vital Signs Vital signs: Vital Signs Temperature 36.8 C 12/17/21 10:42 Pulse Rate 82 12/17/21 10:42 Respiratory Rate 20 12/17/21 10:42 Blood Pressure 151/82 H 12/17/21 10:42 Pulse Oximetry 98 12/17/21 10:42 Temperature 36.8 C 12/17/21 10:42 Pulse Rate 82 12/17/21 10:42 Respiratory Rate 20
== END 2021-12-17 11:28 | disposition home or self-care (01) ==
PROVIDERS: Emergency Provider Nurse Practitioner Family; PCP Family Medicine
DX: J98.11 Atelectasis (principal); F17.290 Nicotine dependence, other tobacco product, uncomplicated; E78.00 Pure hypercholesterolemia, unspecified; I10 Essential (primary) hypertension; I25.2 Old myocardial infarction; Z95.0 Presence of cardiac pacemaker; Z79.82 Long term (current) use of aspirin
CPT/HCPCS: 71046; 99213; G0463

== ENCOUNTER 2022-01-06 08:03 | Emergency (ER) | payer MEDICARE, SELFPAY ==
--- NOTE | ~2022-01-06 | XR_ITS ---
EXAMINATION: XR chest 2V DATE: 01/06/2022 08:32 INDICATION: Cough. TECHNIQUE: Frontal and lateral views of the chest were obtained. COMPARISON: Chest 2 views 12/17/2021 FINDINGS: There are airspace opacities in left lower lung zone. No pleural effusion or pneumothorax. The heart size is normal. There is a left chest wall pacer with leads in the right atrium and right v entricle. IMPRESSION: 1. Stable airspace opacities in left lower lung zone, consistent with atelectasis versus pneumonia. Reviewed, dictated and finalized at location A. IMPRESSION: 1. Stable airspace opacities in left lower lung zone, consistent with atelectas is versus pneumonia.
--- NOTE | 2022-01-06 08:08 | ED.URI ---
HPI - URI/Sore Throat General Chief Complaint: Upper Respiratory Infection Stated Complaint: cough chest congestion Time Seen by Provider: 01/06/22 08:11 Source: patient Mode of arrival: ambulatory Limitations: no limitations History of Present Illness HPI Narrative: Mr. Ma is a 81-year-old male patient presenting to the clinic today with complaints of cough and chest congestion x 2 days. He reports he was seen at [facility] 6 days ago and was told that he had a touch of pneumonia and he was given a Z-Ashwin. He began taking the Z-Ashwin and felt better however he finished it on Monday and has felt bad for the last 2 days. He has a productive cough with yellow phlegm. He reports feeling weak and is pale. He has had hot and cold chills but no known fever. He does report feeling short of breath at rest and rates his shortness of breath a 7 out of 10 currently. SPO2 is currently 99% on room air. He reports that soon after he was treated for the pneumonia he drove down to [place] and back. No known exposure to anybody with COVID, flu, or strep. He recently tested positive for influenza a couple weeks ago and I saw him in the clinic for a return to work evaluation and he had mild bibasilar atelectasis of the lungs at that time. Related Data Home Medications Medication Instructions Recorded Confirmed aspirin 81 mg tablet,delayed 81 mg PO DAILY 05/05/20 01/06/22 release (Adult Low Dose Aspirin) Allergies Allergy/AdvReac Type Severity Reaction Status Date / Time No Known Allergies Allergy Verified 01/06/22 08:18 Review of Systems Review of Systems: Pertinent positives per HPI. Patient denies any rash, headache, visual changes, dizziness, sore throat, chest pain, palpitations, nausea, vomiting, diarrhea, constipation, abdominal pain, or any urinary issues. [facility] Past Medical History Medical History Hypercholesteremia Hypertension Low vitamin B12 level Myocardial infarct, old 2019 Pacemaker [employer] [place] 8 MARIE [id number] Surgical History Surgical History History of cholecystectomy Family History Family History Father , complication of pneumonia Pneumonia Mother Acute myocardial infarction Diabetes mellitus Social History Social History Years smoked: 60 Smoking status: Current every day smoker Tobacco type: cigars Second hand tobacco smoke exposure: No (smokes 4 cigars daily for 60 years) Alcohol intake: former Substance use: never Additional living arrangements comments: grandson Gender identity (if verbalized by the patient): Male Sexual Orientation (if Verbalized by the Patient): Straight or Heterosexual Comments At the time of my signature, I reviewed and agree with the nursing past medical, surgical, social, and family history. There is no relevant family history pertinent to the patient complaint. Exam Narrative: General: Well-developed, obese, pale appearing, easy to arouse and engages in conversation Head: Normocephalic, atraumatic Eyes: Pupils equally round and reactive to light bilaterally, EOM intact, sclera and conjunctive clear, no discharge, lids normal Ears: TMs intact and clear, ear canals clear, no drainage, grossly hearing normal. Nose: Nares patent, clear discharge, no inflammation, no sinus tenderness. Mouth: Oropharynx without lesions or masses, good dentition, MMM. Neck: Supple, trachea midline, no enlargement of anterior or posterior cervical nodes, no thyroid masses or goiter palpable. Cardio: Regular rate and rhythm, s1 and s2 normal, no murmur appreciated. Resp: Crackles heard over the mid and lower lung bases posteriorly, lung sounds diminished, SPO2 99% on room air Course Course Emerge
[2022-01-06 08:09] VITALS: BP 139/70; PULSE 85; RESP 20; TEMP 36.9; O2SAT 99
== END 2022-01-06 08:58 | disposition home or self-care (01) ==
PROVIDERS: Emergency Provider Nurse Practitioner Family; PCP Family Medicine
DX: J18.9 Pneumonia, unspecified organism (principal); Z20.822 Contact with and (suspected) exposure to COVID-19; F17.290 Nicotine dependence, other tobacco product, uncomplicated; E78.00 Pure hypercholesterolemia, unspecified; I10 Essential (primary) hypertension; I25.2 Old myocardial infarction; Z95.0 Presence of cardiac pacemaker; Z79.82 Long term (current) use of aspirin
CPT/HCPCS: 71046; 87426; 99213; C9803; G0463

== ENCOUNTER 2022-02-02 15:04 | Outpatient (CLI) | payer MEDICARE, SELFPAY ==
--- NOTE | ~2022-02-02 | XR_ITS ---
EXAMINATION: XR chest 2V DATE: 02/02/2022 15:15 INDICATION: Unspecified diastolic heart failure TECHNIQUE: Frontal and lateral views of the chest are obtained COMPARISON: 01/06/2022 FINDINGS: Cardiomegaly is noted. There is a small to moderate-sized left pleural effusion, new since the comparison examination. There are worsened airspace opacities of the left lung base. No pneumotho rax is identified. A dual-lead cardiac pacemaker of the left chest wall ends with leads in expected l ocations. There is severe thoracic spondylosis. IMPRESSION: 1. New small to moderate-sized left pleural effusion. 2. Worsened left basilar airspace opacities, consistent with atelectasis versus pneumonia. 3. Cardiomegaly. Reviewed, dictated and finalized at location B.
[2022-02-02 19:11] LABS: Hematocrit 42.8 % (42.0-52.0); Hemoglobin 13.6 g/dL (14.0-18.0); Mean Corpuscular HGB Conc 31.8 g/dl (32-36); Mean Corpuscular Hemoglobin 28.8 pg (26-34); Mean Corpuscular Volume 90.5 fl (80-100); Mean Platelet Volume 9.8 fl (7.4-10.4); Platelet Count Result 305 k/mm3 (150-375); Red Blood Count 4.73 M/mm3 (4.6-6.20); Red Cell Distribution Width 12.4 % (11.5-14.5); White Blood Count 5.6 K/mm3 (4.5-10.0)
[2022-02-02 19:21] LABS: Alanine Aminotransferase 20 U/L (6-50); Albumin Level 3.8 g/dL (3.5-5.1); Alkaline Phosphatase 108 U/L (38-126); Anion Gap 6 mmol/L (8-16); Aspartate Amino Transferase 40 U/L (17-59); Bilirubin,Total 0.6 mg/dL (0.2-1.3); Blood Urea Nitrogen 13 mg/dL (9-20); Calcium 8.7 mg/dL (8.4-10.2); Carbon Dioxide 30 mmol/L (22-30); Chloride 102 mmol/L (98-107); Estimated Glomerular Filt Rate > 60; Glucose 86 mg/dL (65-110); Sodium 138 mmol/L (137-145)
[2022-02-02 19:42] LABS: NT Pro B Type Natriuretic Pept 2060 pg/mL (5-100)
== END 2022-02-02 15:05 | disposition home or self-care (01) ==
PROVIDERS: PCP Family Medicine; Visit Provider Family Medicine
DX: I50.30 Unspecified diastolic (congestive) heart failure (principal); I51.7 Cardiomegaly; R91.8 Other nonspecific abnormal finding of lung field; J90 Pleural effusion, not elsewhere classified
CPT/HCPCS: 36415; 71046; 80053; 83880; 85027

== ENCOUNTER 2022-03-01 07:18 | Outpatient (CLI) | payer MEDICARE, SELFPAY ==
--- NOTE | ~2022-03-01 | XR_ITS ---
XR chest 2V 03/01/2022 07:31 Indication: Dyspnea Procedure: 2 view chest Comparison: Comparison to multiple prior studies sequentially, with oldest reviewed study dated 02/2020. Findings: Moderate left pleural effusion. There is underlying compressive atelectasis. Right lung is clear. No pneumothorax. No acute osseous abnormality. Impression: 1: Moderate left pleural effusion with underlying compressive atelectasis. Reviewed, dictated and finalized at location A. Impression: 1: Moderate left pleural effusion with underlying compressive atelectasis.
== END 2022-03-01 07:19 | disposition home or self-care (01) ==
PROVIDERS: PCP Family Medicine; Visit Provider Family Medicine
DX: R91.8 Other nonspecific abnormal finding of lung field (principal); J90 Pleural effusion, not elsewhere classified; J98.11 Atelectasis
CPT/HCPCS: 71046

== ENCOUNTER 2022-03-29 09:59 | Outpatient (CLI) | payer MEDICARE, SELFPAY ==
[2022-03-29 19:13] LABS: Anion Gap 5 mmol/L (8-16); Blood Urea Nitrogen 19 mg/dL (9-20); Calcium 8.5 mg/dL (8.4-10.2); Carbon Dioxide 31 mmol/L (22-30); Chloride 101 mmol/L (98-107); Estimated Glomerular Filt Rate > 60; Glucose 131 mg/dL (65-110); Potassium 3.6 mmol/L (3.4-5.0); Sodium 137 mmol/L (137-145)
== END 2022-03-29 10:00 | disposition home or self-care (01) ==
LOC: ANHBWCLAB 09:59
PROVIDERS: PCP Family Medicine; Visit Provider Family Medicine
DX: E87.6 Hypokalemia (principal)
CPT/HCPCS: 36415; 80048

== ENCOUNTER → 2022-03-29 10:22 | Outpatient (CLI) | payer MEDICARE, SELFPAY ==
--- NOTE | ~2022-03-29 | XR_ITS ---
EXAMINATION: XR chest 2V DATE: 03/29/2022 10:41 INDICATION: Unspecified diastolic (congestive) failure TECHNIQUE: frontal and lateral views of the chest were obtained. COMPARISON: Chest radiograph dated 03/01/2022 FINDINGS: Decrease in a retrocardiac opacity left lung base with blunting at costophrenic angle consistent with slight decrease in size of a small left pleural effusion with associated left basilar atelectasis or pneumonia. Right lung is clear. No pulmonary edema, pneumothorax or right-sided pleural effusion. Th e cardiomediastinal silhouette is within normal limits for AP technique. Dual lead pacemaker seen wit h leads projecting over the expected locations of the right atrium and right ventricle. Cholecystecto my clips in the right upper quadrant. IMPRESSION: 1. Decreased small left pleural effusion with associated left basilar atelectasis and/or pneumonia. Reviewed, dictated and finalized at location A. IMPRESSION: 1. Decreased small left pleural effusion with associated left basilar atelectas is and/or pneumonia.
== END ==
PROVIDERS: PCP Family Medicine; Visit Provider Family Medicine
DX: I50.30 Unspecified diastolic (congestive) heart failure (principal); J90 Pleural effusion, not elsewhere classified; R91.8 Other nonspecific abnormal finding of lung field
CPT/HCPCS: 71046

== ENCOUNTER 2022-05-11 09:41 | Outpatient (CLI) | payer MEDICARE, SELFPAY ==
[2022-05-11 19:38] LABS: Anion Gap 10 mmol/L (8-16); Blood Urea Nitrogen 21 mg/dL (9-20); Calcium 8.7 mg/dL (8.4-10.2); Carbon Dioxide 29 mmol/L (22-30); Chloride 104 mmol/L (98-107); Estimated Glomerular Filt Rate > 60; Glucose 125 mg/dL (65-110); Potassium 3.2 mmol/L (3.4-5.0); Sodium 143 mmol/L (137-145)
[2022-05-11 20:06] LABS: Hemoglobin A1C 5.9 % (<5.7)
== END 2022-05-11 09:42 | disposition home or self-care (01) ==
PROVIDERS: PCP Family Medicine; Visit Provider Family Medicine
DX: E87.6 Hypokalemia (principal); R73.09 Other abnormal glucose
CPT/HCPCS: 36415; 80048; 83036

== ENCOUNTER 2022-05-19 10:42 | Outpatient (CLI) | payer MEDICARE, SELFPAY ==
[2022-05-19 19:57] LABS: Anion Gap 12 mmol/L (8-16); Blood Urea Nitrogen 17 mg/dL (9-20); Calcium 8.7 mg/dL (8.4-10.2); Carbon Dioxide 31 mmol/L (22-30); Chloride 101 mmol/L (98-107); Estimated Glomerular Filt Rate > 60; Glucose 100 mg/dL (65-110); Potassium 3.6 mmol/L (3.4-5.0); Sodium 144 mmol/L (137-145)
== END 2022-05-19 10:43 | disposition home or self-care (01) ==
PROVIDERS: PCP Family Medicine; Visit Provider Family Medicine
DX: E87.6 Hypokalemia (principal)
CPT/HCPCS: 36415; 80048

== ENCOUNTER 2022-05-31 07:48 | Outpatient (CLI) | payer MEDICARE, SELFPAY ==
--- NOTE | ~2022-05-31 | XR_ITS ---
XR chest 2V DATE: 05/31/2022 08:56 INDICATION: Heart failure TECHNIQUE: PA and lateral views COMPARISON: 03/29/2022 2 view chest FINDINGS: There is pulmonary vascular congestion and redistribution. Is pulmonary interstitial promin ence including Lulu B-lines. There is prominence of the minor and greater fissures. There is pleura l effusion, primarily on the left. There are bilateral predominantly lower lung infiltrates, left gre ater than right. Left-sided dual-lead pacemaker device with leads overlying right atrium and right ventricle. Cardiome kayla. Diffuse osteopenia. IMPRESSION: Congestive heart failure, pulmonary edema, primarily left pleural effusion Bibasilar infiltrate or atelectasis, left greater than right Reviewed, dictated and finalized at location A. IMPRESSION: Congestive heart failure, pulmonary edema, primarily left pleural e ffusion Bibasilar infiltrate or atelectasis, left greater than right
[2022-05-31 20:23] LABS: NT Pro B Type Natriuretic Pept 1730 pg/mL (5-100)
[2022-05-31 20:45] LABS: Prostate Specific Antigen < 0.1 ng/mL (< OR = 4.0)
== END 2022-05-31 07:49 | disposition home or self-care (01) ==
PROVIDERS: PCP Family Medicine; Visit Provider Family Medicine
DX: I50.9 Heart failure, unspecified (principal); Z12.5 Encounter for screening for malignant neoplasm of prostate; Z85.46 Personal history of malignant neoplasm of prostate; J98.11 Atelectasis
CPT/HCPCS: 36415; 71046; 83880; 84153; G0103

== ENCOUNTER 2022-06-08 09:50 | Outpatient (CLI) | payer MEDICARE, SELFPAY ==
--- NOTE | ~2022-06-08 | XR_ITS ---
EXAMINATION: XR chest 2V Exam Date/Time: 06/08/2022 9:52 [employer] HISTORY: I50.9 - Heart failure, unspecified Comparison: 05/31/2022. RESULT: Lines, tubes, and devices: Left chest pacer with intact leads. Cholecystectomy clips. Lungs and pleura: Diffuse reticular opacities and senescent change. Left basilar airspace disease.. Moderate left costophrenic angle blunting. Cardiomediastinal silhouette: Stable. Other: No acute osseous or upper abdominal finding. IMPRESSION: Mild interstitial edema. Atelectasis/consolidation in the left lower lung. Moderate left pleural effu jann, smaller than in the prior study. Reviewed, dictated and finalized at location K. [employer] IMPRESSION: Mild interstitial edema. Atelectasis/consolidation in the left lower lung. Mode rate left pleural effusion, smaller than in the prior study.
== END 2022-06-08 09:51 | disposition home or self-care (01) ==
LOC: ANHBWCIMG 09:51
PROVIDERS: PCP Family Medicine; Visit Provider Family Medicine
DX: R06.02 Shortness of breath (principal); I50.9 Heart failure, unspecified; J84.9 Interstitial pulmonary disease, unspecified; J90 Pleural effusion, not elsewhere classified
CPT/HCPCS: 71046

== ENCOUNTER 2022-08-22 08:18 | Outpatient (CLI) | payer MEDICARE, SELFPAY ==
[2022-08-22 20:26] LABS: Hematocrit 47.9 % (42.0-52.0); Hemoglobin 15.2 g/dL (14.0-18.0); Mean Corpuscular HGB Conc 31.7 g/dl (32-36); Mean Corpuscular Volume 94.5 fl (80-100); Mean Platelet Volume 10.4 fl (7.4-10.4); Platelet Count Result 181 k/mm3 (150-375); Red Blood Count 5.07 M/mm3 (4.6-6.20)
[2022-08-22 20:37] LABS: Alanine Aminotransferase 16 U/L (6-50); Albumin Level 3.7 g/dL (3.5-5.1); Alkaline Phosphatase 87 U/L (38-126); Anion Gap 6 mmol/L (8-16); Aspartate Amino Transferase 38 U/L (17-59); Bilirubin,Total 0.8 mg/dL (0.2-1.3); Blood Urea Nitrogen 16 mg/dL (9-20); Calcium 8.4 mg/dL (8.4-10.2); Carbon Dioxide 31 mmol/L (22-30); Chloride 107 mmol/L (98-107); Estimated Glomerular Filt Rate > 60; Glucose 125 mg/dL (65-110); Potassium 3.8 mmol/L (3.4-5.0); Sodium 144 mmol/L (137-145)
[2022-08-22 21:07] LABS: Hemoglobin A1C 5.8 % (<5.7)
[2022-08-22 21:31] LABS: Appearance Urine Turbid (Clear); Bilirubin Urine Negative (Negative); Blood Urine Negative (Negative); Color Urine Yellow (Yellow); Glucose Urine UA Negative (Negative); Ketones Urine Negative (Negative); Leukocyte Esterase Ur Negative LEU/UL (NEGATIVE); Nitrate Urine Negative (Negative); Protein Urine Trace mg/dL (Negative); Specific Grav Ur >= 1.030 (1.001-1.035)
[2022-08-22 21:45] LABS: Add Urine Microscopic? YES; Amorphous Sediment Urine Few; Mucus Urine Few /lpf; RBC Urine 0-2 /hpf (0-2); Squamous Epithelial Cell Urine Moderate /hpf (Few)
== END 2022-08-22 08:19 | disposition home or self-care (01) ==
PROVIDERS: PCP Family Medicine; Visit Provider Family Medicine
DX: I10 Essential (primary) hypertension (principal); I50.30 Unspecified diastolic (congestive) heart failure; R53.83 Other fatigue; R73.03 Prediabetes; R42 Dizziness and giddiness
CPT/HCPCS: 36415; 80053; 81001; 83036; 85027

== ENCOUNTER 2024-03-22 16:06 | Emergency (ER) | payer MEDICARE, SELFPAY ==
[2024-03-22 16:14] VITALS: BP 155/95; PULSE 85; RESP 18; TEMP 36.6; O2SAT 98
--- NOTE | 2024-03-22 16:18 | ED.URI ---
HPI - URI/Sore Throat General Chief Complaint: Upper Respiratory Infection Stated Complaint: weak/cough Time Seen by Provider: 03/22/24 16:20 Source: patient and RN notes reviewed Mode of arrival: ambulatory Limitations: no limitations History of Present Illness HPI Narrative: 83-year-old male presents concern for 5 day history of cough, general weakness and malaise. He reports he went to the emergency room and had a normal workup. He denies any known sick contacts. MD elicited complaint: cough Related Data Home Medications Medication Instructions Recorded Confirmed aspirin 81 mg tablet,delayed 81 mg PO DAILY 05/05/20 03/22/24 release (Adult Low Dose Aspirin) simvastatin 40 mg tablet 40 mg PO DAILY 03/22/24 03/22/24 Allergies Allergy/AdvReac Type Severity Reaction Status Date / Time No Known Allergies Allergy Verified 03/22/24 16:08 Review of Systems Review of Systems: CONSTITUTIONAL: Reports malaise, fatigue EYES: Denies visual changes, redness, or discharge. ENT: Reports rhinorrhea, congestion, sinus pain, otalgia and sore throat. CARDIOVASCULAR: Denies chest pain, palpitations, or edema. RESPIRATORY: Reports productive cough. Denies dyspnea. GASTROINTESTINAL: Denies abdominal pain, nausea, vomiting, diarrhea SKIN: Denies rash or itching. MUSCULOSKELETAL: Denies myalgia. NEUROLOGIC: Denies headache. All systems reviewed & are unremarkable except as noted in HPI and below PMFSH Past Medical History Medical History (Updated 03/22/24 @ 16:27 by Dinah Burnett NP) Hypercholesteremia Hypertension Low vitamin B12 level Myocardial infarct, old 2019 Pacemaker [employer] [place] 8 MARIE [id number] Surgical History Surgical History History of cholecystectomy Family History Family History Father , complication of pneumonia Pneumonia Mother Acute myocardial infarction Diabetes mellitus Social History Social History (Updated 07/27/22 @ 13:53 by Leatha Farley MA) Years smoked: 60 Smoking status: Current every day smoker Tobacco type: cigars Second hand tobacco smoke exposure: No (smokes 4 cigars daily for 60 years) Alcohol intake: former Substance use: never Lack of Transportation: No Lack of Food: Never True Current Housing: I Have Housing Concerned About Future Housing: No Difficulty Paying Gas/Electric Bills: No Difficulty Paying for Meds: No Currently Unemployed: No Education: High School Diploma/GED Difficulty w/ Childcare or Family Care: No Living arrangements: with family Additional living arrangements comments: grandson Occupation/Education: occupation Gender identity (if verbalized by the patient): Male Sexual Orientation (if Verbalized by the Patient): Straight or Heterosexual Comments At time of signature, agree with nursing past medical, surgical, social and family history. There is no relevant family history pertinent to the presenting complaint Exam Narrative: GENERAL: Well-appearing, well-nourished, and in no acute distress. HEAD: Normocephalic EYES: PERRLA, conjunctivae clear ENT: Nares clear. Mucous membranes moist. TM pearly coley with dull light reflex bilaterally; no tragal tenderness. Oropharynx not erythematous without lesions. Tonsils not enlarged and without exudate, no drooling, no hoarseness, no trismus, uvula midline. NECK: Supple. No lymphadenopathy CHEST: Scattered rhonchi, Clear to auscultation, breath sounds equal. No wheezing, rhonchi, rales, or stridor. No respiratory distress, speaks in full sentences. Cough noted HEART: Regular rate and rhythm. No murmur heard. SKIN: Warm, dry, no rash. NEURO: Alert and oriented x3. PSYCH: Normal mood and affect Course Course Emergency Course: Patient is aware of diagnosis, understands and agrees to treatment plan. Anticipatory guidance g
[2024-03-22 16:26] VITALS: BP 155/95; PULSE 85; RESP 18; TEMP 36.6; O2SAT 98
== END 2024-03-22 16:30 | disposition home or self-care (01) ==
PROVIDERS: Emergency Provider Nurse Practitioner
DX: R05.9 Cough, unspecified (principal); F17.290 Nicotine dependence, other tobacco product, uncomplicated; E78.00 Pure hypercholesterolemia, unspecified; I10 Essential (primary) hypertension; I25.2 Old myocardial infarction; Z95.0 Presence of cardiac pacemaker; Z79.82 Long term (current) use of aspirin
CPT/HCPCS: 99213; G0463